=== PATIENT | male | born 1965 | race Caucasian/White ===

== ENCOUNTER 2023-07-29 23:15 | Emergency (ER) | payer MEDICARE, OTHER ==
[~2023-07-29] VITALS: Ht 177.8 cm; Wt 102.1 kg
[~2023-07-29 23:15] MED LIST: BENA1TAB18 PO; CARV6.252 PO; GABA300C PO; INSU3INS6 SQ; MELO7.5T12 PO; METF-442 PO; ROSU5TAB PO
[2023-07-29 23:35] VITALS: TEMP 98.4
[2023-07-30] MEDS ORDERED: LIDOCAINE 1%-EPI 1:100,000 20 ML VIAL ONE (00:29)
[2023-07-30] MEDS: LIDOCAINE /MPF 1% VIAL 5 ML VIAL IJ ONE (00:49)
[2023-07-30] MEDS ORDERED: BACITRACIN ZINC OINT PACKET 1 EA PACKET TP ONE (00:58)
[2023-07-30] MEDS: BACITRACIN ZINC OINT PACKET 1 EA PACKET TP ONE (01:00)
[2023-07-30 01:04] VITALS: BP 130/74; O2SAT 97
== END 2023-07-30 01:04 | disposition home or self-care (01) ==
LOC: ER 23:18
DX: S01.432A Puncture wound without foreign body of left cheek and temporomandibular area, initial encounter (principal); I10 Essential (primary) hypertension; E11.9 Type 2 diabetes mellitus without complications; Z87.39 Personal history of other diseases of the musculoskeletal system and connective tissue; F17.200 Nicotine dependence, unspecified, uncomplicated; X58.XXXA Exposure to other specified factors, initial encounter; Y93.89 Activity, other specified; Y92.89 Other specified places as the place of occurrence of the external cause; Y99.8 Other external cause status
CPT/HCPCS: 12011; 99282; J3490